=== PATIENT | female | born 1960 | race Caucasian/White ===

== ENCOUNTER 2016-05-16 06:07 | Day surgery (SDC) | payer MEDICARE, OTHER ==
[2016-05-14 15:11] VITALS: BMI 27.4
[~2016-05-16 06:07] MED LIST: DEXAMETHASONE SOD PHOSPHATE 10 MG/ML 1 ML VIAL IV ONE; HEPARIN SODIUM,PORCINE 5,000 UNIT/ML 1 ML VIAL SQ ONE; LACTATED RINGERS 1,000 ML IV SCH; LIDOCAINE 1% 20 ML VIAL (10MG/ML) FOR IV START INTRADERMA PRN; MIDAZOLAM 2 MG/2 ML VIAL IV PRN; ONDANSETRON 4 MG/2 ML VIAL IVP ONE; SCOPOLAMINE 1.5MG/72HR PATCH TRANSDERM ONE; ceFAZolin 2 GM in SODIUM CHLORIDE 0.9% 100 ML IVPB ONE
[2016-05-16] MEDS ORDERED: ACETAMINOPHEN IV (For NPO) 1,000 MG in EMPTY BAG 1 BAG IVPB STA (07:13)
[2016-05-16] MEDS ORDERED: BUPIVACAINE LIPOSOME/PF 1.3% 20 ML, BUPIVACAIN-EPI 0.5%-1:200,000 25 ML, SODIUM CHLORID... MISCELLANE STA ×3 (07:13)
--- NOTE | 2016-05-16 07:16 | P.GSHP ---
History of Present Illness H&P Date: 05/16/16 CHIEF COMPLAINT: Incisional hernia. HISTORY OF PRESENT ILLNESS: The patient is a 55-year-old female who presents with epigastric abdominal pain and incisional hernia found on CT scan of the abdomen. Now she presents for further evaluation and management. PAST MEDICAL HISTORY: Please see list. PAST SURGICAL HISTORY: Please see list. MEDICATIONS: Please see list. ALLERGIES: Please see list. SOCIAL HISTORY: No illicit drug use FAMILY HISTORY: No reports of Crohn disease or ulcerative colitis. REVIEW OF ORGAN SYSTEMS: CONSTITUTIONAL: No reports of fevers or chills. GI: Denies any blood in stools or constipation. PHYSICAL EXAM: VITAL SIGNS: Stable GENERAL: Well-developed pleasant female in no acute distress. HEENT: No scleral icterus. Extraocular movements grossly intact. Moist buccal mucosa. NECK: Supple without lymphadenopathy. CHEST: Unlabored respirations. Equal bilateral excursions. CARDIOVASCULAR: Regular rate and rhythm. Distal 2+ pulses. ABDOMEN: Soft, nondistended. Palpable defect of the epigastrium and tender at previous incision. MUSCULOSKELETAL: No clubbing, cyanosis, or edema. ASSESSMENT: 1. Incisional ventral hernia. 2. Epigastric abdominal pain. PLAN: 1. Recommend proceeding with laparoscopic incisional hernia repair with mesh. 2. Benefits and risks of surgical intervention was discussed including possibility of open technique. 3. DVT prophylaxis. 4. Antibiotic prophylaxis. Past Medical History Past Medical History: Fibromyalgia, GERD/Reflux, Osteoarthritis (OA), Rheumatoid Arthritis (RA) Additional Past Medical History / Comment(s): LUPUS, DEGENERATIVE BONE DISEASE, HX KIDNEY STONES, gout, tinnitis bilaterally,CREST (skin tightening disease) History of Any Multi-Drug Resistant Organisms: None Reported Past Surgical History: Adenoidectomy, Appendectomy, Bariatric Surgery, Cholecystectomy, Hernia Repair, Hysterectomy, Joint Replacement, Tonsillectomy, Tubal Ligation, Uterine Ablation Additional Past Surgical History / Comment(s): 09/18/15 Lap marlyn-en-y with EGD and hiatal hernia repair, lysis of adhesions. Other surgical hx: RT KNEE REPLACEMENT,NEPHROLITHOTOMY x 2,RT CARPEL TUNNEL X 2, RT KNEE ARTHROSCOPY, D&C, rectocele, lap ventral hernia repair, bilateral inguinal hernia repair. EGD Past Anesthesia/Blood Transfusion Reactions: Motion Sickness Additional Past Anesthesia/Blood Transfusion Reaction / Comment(s): no hx blood transfusion Past Psychological History: Anxiety, Depression Additional Psychological History / Comment(s): Pt states depression is well managed. She resides with her spouse. She has a rolling walker that she uses at times. She drives. Smoking Status: Former smoker Past Alcohol Use History: None Reported Additional Past Alcohol Use History / Comment(s): smoked for 6 months at age 16 Past Drug Use History: None Reported - Past Family History Mother Family Medical History: Cancer, Musculoskeletal Disorder, Neurologic Disorder Additional Family Medical History / Comment(s): MS Father Family Medical History: Cancer Additional Family Medical History / Comment(s): HEART PROBLEMS, prostate cancer. Medications and Allergies Home Medications Medication Instructions Recorded Confirmed Type Multivitamins, Thera [Multivitamin] 1 tab PO DAILY 09/07/15 05/14/16 History Acetaminophen Tab [Tylenol Tab] 500 mg PO Q6H PRN 05/14/16 05/14/16 History HYDROcodone/APAP 5-325MG [Hoople 1 - 2 tab PO HS PRN 05/14/16 05/16/16 History 5-325] Allergies Allergy/AdvReac Type Severity Reaction Status Date / Time Penicillins Allergy Severe Rash/Hives, Verified 05/14/16 15:01 fever latex Allergy Itching Verified 05/14/16 15:01 silicone Allergy Itching Verified 05/14/16 15:01 METAL Allergy Rash/Hives Uncoded 05/14/16 15:01 Surgical - Exam Vital Signs Temp Pulse Resp BP Pulse Ox 98 F 58 L 18 116/75 100 05/16/16 06:22 05/16/16 06:22 05/16/16 06:22 05/16/16 06:22 05/16/16 06:22
[2016-05-16] MEDS ORDERED: VECURONIUM 10 MG VIAL IV ONE (07:26)
[2016-05-16] MEDS ORDERED: SUCCINYLCHOLINE CHLORIDE 100 MG/5 ML SYR IV ONE (07:26)
[2016-05-16] MEDS ORDERED: fentaNYL (PF) 50 MCG/ML 2 ML AMP ONE (07:26)
[2016-05-16] MEDS ORDERED: MIDAZOLAM 2 MG/2 ML VIAL ONE (07:26)
[2016-05-16] MEDS ORDERED: NEOSTIGMINE 1 MG/ML 10 ML VIAL ONE (07:26)
[2016-05-16] MEDS ORDERED: PROPOFOL 10 MG/ML 20 ML VIAL IV ONE (07:26)
[2016-05-16] MEDS ORDERED: ePHEDrine 50 MG/ML 1 ML AMP ONE (07:26)
[2016-05-16] MEDS ORDERED: LIDOCAINE 1% INJ 10MG/ML (20 ML MDV) ONE (07:26)
[2016-05-16] MEDS ORDERED: GLYCOPYRROLATE 0.2 MG/ML 2 ML VIAL ONE (07:26)
[2016-05-16] MEDS ORDERED: LACTATED RINGERS 1,000 ML IV ONE ×2 (08:31→11:25)
[2016-05-16] MEDS ORDERED: HYDROcodone/APAP 5-325MG 1 EACH TAB PO PRN (09:03)
[2016-05-16] MEDS ORDERED: ONDANSETRON 4 MG/2 ML VIAL IVP PRN (09:03)
[2016-05-16] MEDS ORDERED: NALOXONE 0.4 MG/ML 1 ML VIAL IV PRN (09:03)
[2016-05-16] MEDS ORDERED: PROMETHAZINE 25 MG TAB PO PRN (09:03)
--- NOTE | 2016-05-16 09:03 | P.PCN ---
Date of Procedure: 05/16/16 Preoperative Diagnosis: Epigastric abdominal pain, history of ventral hernia Postoperative Diagnosis: Extensive adhesions epigastrium, left upper quadrant, history of ventral hernia Procedure(s) Performed: Extensive laparoscopic lysis of adhesions over 1 hour Anesthesia: CALVIN, local Surgeon: Guerda Crowell Estimated Blood Loss (ml): 5 Pathology: none sent Condition: stable Disposition: floor Operative Findings: No recurrent incisional ventral hernia identified. Mesh placement secured from previous repair. Extensive adhesions along the epigastrium at the location of pain resected. Diagnostic laparoscopy from previous gastric bypass demonstrates no Munoz defect. Less than 1 cm jejunojejunostomy mesenteric window without bowel involvement. No evidence of small bowel obstruction or volvulus.
[2016-05-16 09:17] VITALS: RESP 16; TEMP 97.6
[2016-05-16] MEDS: HYDROmorphone 1 MG/ML 1 ML SYRINGE IVP PRN ×4 (09:28→09:48)
[2016-05-16] MEDS ORDERED: KETOROLAC 30 MG/ML 1 ML VIAL IVP ONE (09:28)
[2016-05-16] MEDS ORDERED: HYDROcodone/APAP 5-325MG 1 EACH TAB PO ONE (10:44)
[2016-05-16] MEDS ORDERED: diphenhydrAMINE 50 MG/ML 1 ML VIAL IVP ONE (11:25)
[2016-05-16 12:08] VITALS: BP 129/78; PULSE 63
--- NOTE | 2016-05-18 22:39 | P.OP ---
Date of Procedure: 05/16/16 Description of Procedure: SURGEON: GUERDA CROWELL MD ADVANCED QUALITY ENGINEER: BLANCA CHUA PREOPERATIVE DIAGNOSES: 1. Epigastric abdominal pain. 2. History of ventral hernia. 3. History of gastric bypass. 4. Fibromyalgia. 5. Lyme's disease. 6. Rheumatoid arthritis. 7. Gout. 8. History of kidney stones. 9. CREST connective tissue disease. 10. Lupus. POSTOPERATIVE DIAGNOSES: 1. Epigastric abdominal pain. 2. History of ventral hernia. 3. History of gastric bypass. 4. Fibromyalgia. 5. Lyme's disease. 6. Rheumatoid arthritis. 7. Gout. 8. History of kidney stones. 9. CREST connective tissue disease. 10. Lupus. 11. Severe left upper quadrant omentum to abdominal wall adhesions. 12. Severe right lupper quadrant greater omentum to abdominal adhesions. 13. Interloop adhesions. PROCEDURES PERFORMED: 1. Diagnostic laparoscopy. 2. Laparoscopic lysis of adhesions over 60 minutes of abdominal wall and omentum , epigastrium, and left upper quadrant. ANESTHESIA: General with 85-mL Exparel, sensorcaine, saline and epinephrine mixture. ESTIMATED BLOOD LOSS: 5 mL. SPECIMENS REMOVED: None. COMPLICATIONS: None. OPERATIVE FINDINGS: 1. No recurrent incisional ventral hernia identified. 2. Mesh placement secured from previous repair. 3. Extensive adhesions along the epigastrium at the location of pain, resected. 4. No Munoz defect from gastric bypass. 5. Less than 1 cm jejunojejunostomy mesenteric window without bowel involvement. 6. No evidence of small bowel obstruction or volvulus. INDICATIONS: The patient is a 55-year-old female who presents with acute epigastric abdominal pain including prior history of ventral hernia. Multiple diagnostic studies were also obtained including CT of the abdomen was completed. Given the severity of her symptoms, she elected for surgical intervention. Benefits and risks, including possibility of open technique, injury to the small bowel were described at length. Informed consent was obtained. DESCRIPTION OF PROCEDURE: Patient was brought to the operating room, laid in supine position. After general induction, the abdomen was prepped and draped in standard sterile fashion. Prior to incision, a timeout protocol was confirmed with surgical team regarding patient's name including procedure to be performed. Preoperative medications including antibiotics were given. Additionally, bilateral SCDs including heparin 5000 units was administered. A 5 mm laparoscopic trocar entry performed of the right upper quadrant after anesthetizing the skin with local anesthetic. Diagnostic laparoscopy demonstrated moderate adhesions of the epigastrium as well as the left upper quadrant. No gross small bowel dilatation was encountered. Primarily greater omental adhesions were found of the left upper quadrant. Two additional 5-mm trocars were placed: one placed along the right lower lateral abdominal wall and the other along the lower abdomen. A separate 5-mm port was placed along the left lateral abdominal wall. Initial attention was brought to the epigastrium whereby using a combination of blunt dissection with a Kittner as well as sharp dissection with a Sonicision and scissors were used to take the greater omental adhesions off the abdominal wall. No enterotomy or colotomy had occured as the bowel. Scissors were used where small bowel was identified and energy was avoided near the bowel. Moderate adhesions were confirmed along her previous mesh repair at the umbilicus. No recurrent abdominal wall hernias were found at the epigastrium or the umbilicus. Next attention was brought to investigation of her gastric bypass. The marlyn limb and common channel were investigated proximally and distally and without volvulus, intussusception or internal hernia. The Munoz's defect was fibrotic. The jejujejunostomy mesenteric defect was less than 2-cm in size and without small bowel involvement. The base of the cecum was without inflammation. No enterotomies occurred. No evidence of bowel obstruction or small bowel dilatation was found. Final inspection of the abdomen demonstrated adequate hemostasis including no enterotomies. All instruments and pneumoperitoneum were evacuated from the abdominal cavity. Local anesthetic was infiltrated in all wounds for postop analgesia. Dermabond was applied to the skin after reapproximating the incisions with 4-0 Monocryl as described. At the end of the procedure, needle, sponge, and instrument count was verified correct by surgical coordinator. The patient had tolerated the procedure well and was taken to the postanesthesia care unit in stable condition. Intraoperative abdominal films were described and discussed with her family who were overall pleased with her level of care. Plan - Discharge Summary New Discharge Prescriptions: Hydrocodone/Acetaminophen [Linn 5-325] 1 - 2 each PO Q6HR PRN #60 tab PRN Reason: Pain Discharge Medication List Multivitamins, Thera [Multivitamin] 1 tab PO DAILY 09/07/15 [History] Acetaminophen Tab [Tylenol Tab] 500 mg PO Q6H PRN 05/14/16 [History] HYDROcodone/APAP 5-325MG [Linn 5-325] 1 - 2 tab PO HS PRN 05/14/16 [History] Hydrocodone/Acetaminophen [Linn 5-325] 1 - 2 each PO Q6HR PRN #60 tab 05/16/16 [Rx] Follow up Appointment(s)/Referral(s): Guerda Crowell MD [STAFF PHYSICIAN] - 06/04/16 11:30 am ([place] office) Patient Instructions/Handouts: *Surgery [facility] - (Anesthesia) Discharge Instructions Outpatient Surgery, Exploratory Laparoscopy (DC), Abdominal Binder (GEN) Activity/Diet/Wound Care/Special Instructions: Diet as tolerated. Activity as tolerated. Discharge Disposition: HOME SELF-CARE
== END 2016-05-16 12:14 | disposition home or self-care (01) ==
LOC: OR 06:07
PROVIDERS: ATTEND Surgery Plastic and Reconstructive Surgery
DX: K66.0 Peritoneal adhesions (postprocedural) (postinfection) (principal); Z87.898 Personal history of other specified conditions; Z98.84 Bariatric surgery status; M79.7 Fibromyalgia; A69.20 Lyme disease, unspecified; M06.9 Rheumatoid arthritis, unspecified; M10.9 Gout, unspecified; Z87.442 Personal history of urinary calculi; M34.1 CR(E)ST syndrome; M32.9 Systemic lupus erythematosus, unspecified; K21.9 Gastro-esophageal reflux disease without esophagitis; M19.90 Unspecified osteoarthritis, unspecified site; F41.9 Anxiety disorder, unspecified; F32.9 Major depressive disorder, single episode, unspecified; Z79.891 Long term (current) use of opiate analgesic; Z79.899 Other long term (current) drug therapy; Z91.040 Latex allergy status; Z88.0 Allergy status to penicillin; Z91.048 Other nonmedicinal substance allergy status; Z87.891 Personal history of nicotine dependence
CPT/HCPCS: 49329; J2250; J1200; J1644; J1100; J2710; J2405; J2001; J3010; J1885; J1170; J0330; C9290; J2704

== ENCOUNTER → 2016-05-23 | Outpatient (CLI) | payer MEDICARE, OTHER ==
[2016-05-23 10:56] VITALS: BP 125/71; PULSE 60; RESP 18; TEMP 98.6; BMI 27.8
[2016-05-23 12:05] LABS: CH 29.1; CHCM 32.1; HCT 42.2 % (34.0-46.0); HDW 2.32; HGB 13.7 gm/dL (11.4-16.0); MCH 29.5 pg (25.0-35.0); MCHC 32.5 g/dL (31.0-37.0); MCV 90.8 fL (80.0-100.0); Mean Platelet Volume 8.1; RBC 4.65 m/uL (3.80-5.40); WBC 6.3 k/uL (3.8-10.6)
[2016-05-23 12:08] LABS: Partial Thromboplastin Time 24.3 sec (22.0-30.0); Prothrombin Time 10.4 sec (9.0-12.0)
[2016-05-23 12:16] LABS: ALT 41 U/L (9-52); AST 27 U/L (14-36); Alkaline Phosphatase 72 U/L (38-126); Anion Gap 10 mmol/L; Blood Urea Nitrogen 15 mg/dL (7-17); Calcium 9.5 mg/dL (8.4-10.2); Carbon Dioxide 29 mmol/L (22-30); Chloride 104 mmol/L (98-107); Cholesterol 175 mg/dL (<200); Glucose 93 mg/dL (74-99); HDL Cholesterol 48 mg/dL (40-60); Iron 82 ug/dL (37-170); Magnesium 2.2 mg/dL (1.6-2.3); Non-African American GFR(MDRD) >60 (>60 ml/min/1.73 sqM); Phosphorous 4.3 mg/dL (2.5-4.5); Potassium 4.7 mmol/L (3.5-5.1); Sodium 143 mmol/L (137-145); Total Bilirubin 0.5 mg/dL (0.2-1.3); Total Protein 7.1 g/dL (6.3-8.2); Triglycerides 140 mg/dL (<150)
[2016-05-23 12:27] LABS: % Iron Saturation 23.3 % (20-50); Prealbumin 19 mg/dL (18-36); Total Iron Binding Capacity 352 ug/dL (265-497)
[2016-05-23 13:21] LABS: Vitamin B12 720 pg/mL (239-931)
[2016-05-23 13:52] LABS: Hemoglobin A1C 5.9 % (4.2-6.1)
[2016-05-29 15:37] LABS: Selenium 134 mcg/L (63-160)
--- NOTE | 2016-06-27 06:14 | P.PN ---
Progress Note - Text DATE OF SERVICE: 05/23/2016 CHIEF COMPLAINT: Follow up diagnostic laparoscopy. HISTORY OF PRESENT ILLNESS: Dorothea Whittington is 55-year-old female status post Estrada-en-Y gastric bypass on 09/18/2015. She is now approximately 8 months out. Her highest weight was 252 pounds. Today she comes in weighing 167 pounds. She has lost 85 pounds lifetime. Percent excess weight loss is 82%. Again, her ideal body weight for her 5-foot 5-inch frame is 149 pounds. Body mass index is reduced from 42.0 down to 27.9. She is only 18 pounds overweight. She has recently had diagnostic laparoscopy for epigastric abdominal wall hernia for which adhesions were identified. She still reports intermittent pain along the epigastrium. She is wearing an abdominal binder. Separately, she does complain of moderate discomfort from her pannus, given her amount of weight loss. PHYSICAL EXAM: VITAL SIGNS: 98.6, 18, 125/71; 5 feet 5 inches, 167 pounds. Body mass is 27.9. ABDOMEN: Soft, nontender, nondistended. Pannus extends over pubis by 4 cm. Mild hyperemia noted. Incision is well granulated. No palpable incisional hernias. GENERAL: Well-developed female in no acute distress. MUSCULOSKELETAL: Trace bilateral pitting edema. HEENT: No sclerae icterus. Extraocular movements grossly intact. Moist buccal mucosa. NECK: Supple without lymphadenopathy. CHEST: Lungs with clear respirations, equal bilateral excursions. CARDIOVASCULAR: Regular rate and rhythm. NEURO: No focal or lateralizing signs. Cranial nerves II through XII grossly intact. PSYCH: Appropriate affect. ASSESSMENT 1. Morbid obesity due to excess calories. 2. Body mass index reduced from 42 down to 27.9. 3. Status post Estrada-en-Y gastric bypass. 4. History of intra-abdominal adhesions. 5. Panniculitis. 6. Epigastric abdominal pain. PLAN: 1. I have recommended nystatin powder for history of panniculitis. 2. She has done extremely well, already losing 85 pounds lifetime. 3. No moderate lifting for the next 1 to 2 weeks, as she just had recent surgery. 4. She will wear abdominal binder for comfort. 5. Recommend followup at [place] in approximately 1 to 2 weeks. 6. Will continue to monitor her epigastric abdominal pain.
== END | disposition home or self-care (01) ==
LOC: BARWHC3 09:58
PROVIDERS: ATTEND Surgery Plastic and Reconstructive Surgery
DX: Z48.815 Encounter for surgical aftercare following surgery on the digestive system (principal); E66.01 Morbid (severe) obesity due to excess calories; Z68.27 Body mass index [BMI] 27.0-27.9, adult; E21.1 Secondary hyperparathyroidism, not elsewhere classified; E89.1 Postprocedural hypoinsulinemia; D50.8 Other iron deficiency anemias; E44.0 Moderate protein-calorie malnutrition; E55.9 Vitamin D deficiency, unspecified; Z98.84 Bariatric surgery status; Z71.3 Dietary counseling and surveillance; K74.1 Hepatic sclerosis; N19 Unspecified kidney failure; K50.90 Crohn's disease, unspecified, without complications; K66.0 Peritoneal adhesions (postprocedural) (postinfection); M79.3 Panniculitis, unspecified; R10.13 Epigastric pain
CPT/HCPCS: 84255; 84134; 84425; 80061; 80053; 82607; 82728; 83036; 82525; 82746; 83540; 83550; 83735; 84100; 84443; 84590; 84630; 85027; 85610; 85730; 82306; 83970; 97803; G0463; 99211

== ENCOUNTER → 2016-09-26 | Outpatient (CLI) | payer MEDICARE, OTHER ==
[2016-09-26 09:06] VITALS: BP 114/78; PULSE 59; RESP 16; TEMP 99.1; BMI 28.4
[2016-09-26 10:32] LABS: CH 29.9; CHCM 32.3; HCT 44.7 % (34.0-46.0); HDW 2.21; HGB 14.5 gm/dL (11.4-16.0); MCH 30.2 pg (25.0-35.0); MCHC 32.5 g/dL (31.0-37.0); MCV 93.1 fL (80.0-100.0); Mean Platelet Volume 9.1; RDW 13.3 % (11.5-15.5)
[2016-09-26 10:35] LABS: Partial Thromboplastin Time 23.9 sec (22.0-30.0); Prothrombin Time 10.4 sec (9.0-12.0)
[2016-09-26 10:39] LABS: ALT 42 U/L (9-52); AST 30 U/L (14-36); Alkaline Phosphatase 89 U/L (38-126); Anion Gap 10 mmol/L; Blood Urea Nitrogen 17 mg/dL (7-17); Calcium 9.8 mg/dL (8.4-10.2); Carbon Dioxide 27 mmol/L (22-30); Chloride 104 mmol/L (98-107); Cholesterol 187 mg/dL (<200); Glucose 87 mg/dL (74-99); HDL Cholesterol 69 mg/dL (40-60); Magnesium 2.2 mg/dL (1.6-2.3); Non-African American GFR(MDRD) >60 (>60 ml/min/1.73 sqM); Phosphorous 4.4 mg/dL (2.5-4.5); Potassium 4.9 mmol/L (3.5-5.1); Sodium 141 mmol/L (137-145); Total Bilirubin 0.6 mg/dL (0.2-1.3); Total Protein 7.5 g/dL (6.3-8.2)
[2016-09-26 11:07] LABS: Iron 133 ug/dL (37-170)
[2016-09-26 11:18] LABS: % Iron Saturation 32.6 % (20-50); Prealbumin 23 mg/dL (18-36); Total Iron Binding Capacity 408 ug/dL (265-497)
[2016-09-26 12:07] LABS: Hemoglobin A1C 5.7 % (4.2-6.1)
[2016-09-26 12:14] LABS: Vitamin B12 751 pg/mL (239-931)
[2016-10-02 11:53] LABS: Selenium 135 mcg/L (63-160)
== END | disposition home or self-care (01) ==
LOC: BARWHC3 08-29 10:04
PROVIDERS: ATTEND Surgery Plastic and Reconstructive Surgery
DX: E66.01 Morbid (severe) obesity due to excess calories (principal); Z71.3 Dietary counseling and surveillance; Z88.0 Allergy status to penicillin; Z91.040 Latex allergy status; Z91.048 Other nonmedicinal substance allergy status; Z68.28 Body mass index [BMI] 28.0-28.9, adult
CPT/HCPCS: 84255; 84134; 84425; 80061; 80053; 82607; 82728; 83036; 82525; 82746; 83540; 83550; 83735; 84100; 84443; 84590; 84630; 85027; 85610; 85730; 82306; 83970; 97803; G0463; 99211

== ENCOUNTER 2019-12-08 08:18 | Day surgery (SDC) | payer MEDICARE, OTHER ==
[2019-12-02 16:21] VITALS: BMI 27.3
[2019-12-08 08:56] VITALS: TEMP 98.2
[2019-12-08] MEDS: LACTATED RINGERS 1,000 ML IV SCH ×2 (08:56→09:02)
[2019-12-08] MEDS ORDERED: LIDOCAINE 1% INJ 10MG/ML (20 ML MDV) ONE (09:03)
[2019-12-08] MEDS ORDERED: PROPOFOL 10 MG/ML 20 ML VIAL IV ONE (09:03)
--- NOTE | 2019-12-08 09:23 | P.GSHP ---
History of Present Illness H&P Date: 12/08/19 CHIEF COMPLAINT: Dysphagia HISTORY OF PRESENT ILLNESS: The patient is a 59-year-old female who presents reports dysphagia. Upper endoscopy was offered for further evaluation and management. PAST MEDICAL HISTORY: Please see list. PAST SURGICAL HISTORY: Please see list. MEDICATIONS: Please see list. ALLERGIES: Please see list. SOCIAL HISTORY: No illicit drug use FAMILY HISTORY: No reports of Crohn disease or ulcerative colitis. REVIEW OF ORGAN SYSTEMS: CONSTITUTIONAL: No reports of fevers or chills. GI: Denies any blood in stools or constipation. PHYSICAL EXAM: VITAL SIGNS: Stable GENERAL: Well-developed and pleasant in no acute distress. HEENT: No scleral icterus. Extraocular movements grossly intact. Moist buccal mucosa. NECK: Supple without lymphadenopathy. CHEST: Unlabored respirations. Equal bilateral excursions. CARDIOVASCULAR: Regular rate and rhythm. Distal 2+ pulses. ABDOMEN: Soft, nondistended. MUSCULOSKELETAL: No clubbing, cyanosis, or edema. ASSESSMENT: 1. Dysphagia PLAN: 1. Recommend proceeding with an upper endoscopy with dilator Past Medical History Past Medical History: Coronary Artery Disease (CAD), Fibromyalgia, GERD/Reflux, Hearing Disorder / Deafness, Osteoarthritis (OA), Rheumatoid Arthritis (RA) Additional Past Medical History / Comment(s): LUPUS, Lymes, DDD, Hx kidney stones, hx gout, tinnitis bilaterally, CREST (skin tightening disease), hx fibroid uterus. Episode of pancreatitis 12/2018, c/o episodes of abd pain since then. History of Any Multi-Drug Resistant Organisms: None Reported Past Surgical History: Adenoidectomy, Appendectomy, Bariatric Surgery, Cholecystectomy, Heart Catheterization, Hernia Repair, Hysterectomy, Joint Replacement, Tonsillectomy, Tubal Ligation, Uterine Ablation Additional Past Surgical History / Comment(s): 09/18/15 Lap marlyn-en-y with EGD and hiatal hernia repair, lysis of adhesions. Other surgical hx: Total Rt Knee, NEPHROLITHOTOMY x 2, RT CTR X 2, Rt Knee Arthroscopy, D&C, rectocele, lap ventral hernia repair, bilateral inguinal hernia repair. EGD Past Anesthesia/Blood Transfusion Reactions: No Reported Reaction Additional Past Anesthesia/Blood Transfusion Reaction / Comment(s): no hx blood transfusion Smoking Status: Former smoker - Past Family History Mother Family Medical History: Cancer, Musculoskeletal Disorder, Neurologic Disorder Additional Family Medical History / Comment(s): MS Father Family Medical History: Cancer Additional Family Medical History / Comment(s): HEART PROBLEMS, prostate cancer. Medications and Allergies Home Medications Medication Instructions Recorded Confirmed Type Acetaminophen Tab [Tylenol Tab] 500 mg PO Q6H PRN 05/14/16 12/08/19 History Isosorbide Mononitrate ER [Imdur] 30 mg PO DAILY 12/02/19 12/08/19 History Allergies Allergy/AdvReac Type Severity Reaction Status Date / Time Penicillins Allergy Severe Rash/Hives, Verified 12/08/19 08:57 fever latex Allergy Itching Verified 12/08/19 08:57 silicone Allergy Itching Verified 12/08/19 08:57 METAL Allergy Rash/Hives Uncoded 12/08/19 08:57 Surgical - Exam Vital Signs Temp Pulse Resp BP Pulse Ox 98.2 F 78 18 113/76 98 12/08/19 08:54 12/08/19 08:54 12/08/19 08:54 12/08/19 08:54 12/08/19 08:54
[2019-12-08 09:28] VITALS: RESP 16
--- NOTE | 2019-12-08 09:35 | P.PCN ---
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 SURGEON: Guerda Crowell MD ANESTHESIA: MAC. INDICATIONS: The patient is a 59-year-old female who presents with a history of dysphagia and epigastric abdominal pain. Benefits and risks of the procedure were described. Informed consent was obtained. DESCRIPTION: The patient was brought into the endoscopy suite and laid in the left lateral decubitus position. After a timeout was confirmed, the procedure was initiated. An Olympus gastroscope was passed along the posterior oropharynx down to the distal esophagus where the squamocolumnar junction was unremarkable. The gastric pouch was entered. A gastrojejunal stricture of 15 mm was found as the adult gastroscope was 9.5 mm in size. A [employer] balloon dilator was placed through the scope. Final insufflation from 15 mm up to 20 mm was performed with a total of 2 minutes. The scope was advanced up to 60 cm from the incisors into the Estrada limb. The mucosa of the gastrojejunal anastomosis was intact. No chronic gastrojejunal marginal ulcer was encountered. No full-thickness injury was encountered. The GI tract was desufflated. The patient tolerated the procedure well. FINDINGS: Squamocolumnar junction unremarkable at 35 cm. Stricture of approximately 15 mm encountered. No chronic gastrojejunal ulceration encountered. Successful balloon dilatation to 20 mm. Diaphragmatic hiatus at 40 cm. Gastric pouch 5 cm. LA grade B erosive esophagitis RECOMMENDATIONS: Upper endoscopy as needed May benefit from hiatal hernia repair Plan - Discharge Summary Discharge Rx Participant: No New Discharge Prescriptions: Continue Acetaminophen Tab [Tylenol] 500 mg PO Q6H PRN PRN Reason: Headache Isosorbide Mononitrate ER [Imdur] 30 mg PO DAILY Discharge Medication List Acetaminophen Tab [Tylenol] 500 mg PO Q6H PRN 05/14/16 [History] Isosorbide Mononitrate ER [Imdur] 30 mg PO DAILY 12/02/19 [History] Follow up Appointment(s)/Referral(s): Guerda Crowell MD [STAFF PHYSICIAN] [facility] [place] [facility] - 12/15/19 Patient Instructions/Handouts: *Sur[facility] - (Anesthesia) Endoscopy Discharge Instructions, Upper Endoscopy (DC), Esophageal Dilation (DC) Activity/Diet/Wound Care/Special Instructions: Diet as tolerated Discharge Disposition: HOME SELF-CARE
[2019-12-08 09:48] VITALS: BP 120/71; PULSE 64
== END 2019-12-08 10:02 | disposition home or self-care (01) ==
LOC: ORWHC2ENDO 08:18
PROVIDERS: ATTEND Surgery Plastic and Reconstructive Surgery
DX: K95.89 Other complications of other bariatric procedure (principal); R13.10 Dysphagia, unspecified; K44.9 Diaphragmatic hernia without obstruction or gangrene; K22.10 Ulcer of esophagus without bleeding; K21.9 Gastro-esophageal reflux disease without esophagitis; I25.10 Atherosclerotic heart disease of native coronary artery without angina pectoris; M79.7 Fibromyalgia; H91.90 Unspecified hearing loss, unspecified ear; M19.90 Unspecified osteoarthritis, unspecified site; M06.9 Rheumatoid arthritis, unspecified; M32.9 Systemic lupus erythematosus, unspecified; Z86.19 Personal history of other infectious and parasitic diseases; Z87.442 Personal history of urinary calculi; M10.9 Gout, unspecified; H93.19 Tinnitus, unspecified ear; M34.1 CR(E)ST syndrome; Z87.42 Personal history of other diseases of the female genital tract; Z87.19 Personal history of other diseases of the digestive system; Z90.49 Acquired absence of other specified parts of digestive tract; Z90.710 Acquired absence of both cervix and uterus; Z98.51 Tubal ligation status; Z96.651 Presence of right artificial knee joint; Z98.890 Other specified postprocedural states; Z87.891 Personal history of nicotine dependence; Z80.9 Family history of malignant neoplasm, unspecified; Z80.42 Family history of malignant neoplasm of prostate; Z82.49 Family history of ischemic heart disease and other diseases of the circulatory system; Z82.69 Family history of other diseases of the musculoskeletal system and connective tissue; Z79.899 Other long term (current) drug therapy; Z91.040 Latex allergy status; Z88.0 Allergy status to penicillin; Z91.048 Other nonmedicinal substance allergy status
CPT/HCPCS: 43245; J2001; J2704; C1726 ×2; 43249

== ENCOUNTER → 2020-07-04 | Outpatient (CLI) | payer MEDICARE, OTHER | END | disposition home or self-care (01) | LOC: LABWHC1 10:37 | PROVIDERS: ATTEND Surgery Plastic and Reconstructive Surgery | DX: I11.0 Hypertensive heart disease with heart failure (principal); I50.9 Heart failure, unspecified | CPT/HCPCS: 93005 ==

== ENCOUNTER → 2020-07-14 | Outpatient (CLI) | payer MEDICARE, OTHER ==
[2020-07-14 23:01] LABS: African American GFR (CKD) 109.9 (60.0-200.0); Anion Gap 13.2 mmol/L (4.00-12.00); BUN/Creat Ratio 31.43 Ratio (12.00-20.00); Calcium 8.8 mg/dL (8.7-10.3); Carbon Dioxide 18.8 mmol/L (21.6-31.8); Non-African American GFR(CKD) 94.8 (60.0-200.0); Potassium 3.8 mmol/L (3.5-5.5)
== END | disposition home or self-care (01) ==
LOC: LABWHC1 10:56
PROVIDERS: ATTEND Internal Medicine Cardiovascular Disease
DX: R94.31 Abnormal electrocardiogram [ECG] [EKG] (principal)
CPT/HCPCS: 36415; 80048; 84443

== ENCOUNTER → 2020-07-14 | Outpatient (CLI) | payer MEDICARE, OTHER ==
--- NOTE | 2020-07-14 09:44 | FL ---
EXAMINATION TYPE: FL barium swallow DATE OF EXAM: 07/14/2020 COMPARISON: None HISTORY: Diaphragmatic hernia without obstruction, history of Esrtada-en-Y TECHNIQUE: Single contrast technique was utilized to evaluate the esophagus. FINDINGS: Fluoroscopy time: 41 seconds Images: 55 Esophagus is somewhat prominent to the gastroesophageal junction. Gastroesophageal junction opens wid vipin without stenosis. Mild secondary contractions evident during the exam. Tertiary contractions are not evident. Reflux is not identified. Hiatal hernia is not clearly identified. Contrast passes throu gh the Estrada-en-Y with prompt filling of the proximal small bowel. There is complete stripping of the esophageal bolus in the horizontal drinking position. IMPRESSION: 1. There may be some mild esophageal prominence on overhead radiographs with a more normal-appearing esophagus on fluoroscopy. No hiatal hernia or stenosis is evident.
== END | disposition home or self-care (01) ==
LOC: RADUSWWP 08:06
PROVIDERS: ATTEND Surgery Plastic and Reconstructive Surgery
DX: K44.9 Diaphragmatic hernia without obstruction or gangrene (principal)
CPT/HCPCS: 74220

== ENCOUNTER 2020-09-22 11:05 | Day surgery (SDC) | payer MEDICARE, OTHER ==
[2020-09-20 15:03] VITALS: BMI 25.9
--- NOTE | 2020-09-22 08:37 | P.GSHP ---
History of Present Illness H&P Date: 09/22/20 CHIEF COMPLAINT: Gastroesophageal reflux disease and peritoneal adhesions. HISTORY OF PRESENT ILLNESS: The patient is a 59-year-old female who presents with prior hiatal hernia, moderate gastroesophageal reflux disease and peritoneal adhesions. She has completed an esophageal manometry including upper endoscopy workup. Now she presents for surgical intervention. PAST MEDICAL HISTORY: Please see list. PAST SURGICAL HISTORY: Please see list. MEDICATIONS: Please see list. ALLERGIES: Please see list. SOCIAL HISTORY: Please see list. FAMILY HISTORY: Please see list. REVIEW OF ORGAN SYSTEMS: CONSTITUTIONAL: No reports of fevers or chills. GI: Denies any blood in stools or constipation. PHYSICAL EXAM: VITAL SIGNS: Stable GENERAL: Well-developed pleasant and in no acute distress. HEENT: No scleral icterus. Extraocular movements grossly intact. Moist buccal mucosa. NECK: Supple without lymphadenopathy. CHEST: Unlabored respirations. Equal bilateral excursions. CARDIOVASCULAR: Regular rate and rhythm. Distal 2+ pulses. ABDOMEN: Soft, nondistended. No peritoneal signs. MUSCULOSKELETAL: No clubbing, cyanosis, or edema. SKIN: Well-perfused. Good skin turgor. MANOMETRY: Shows no evidence of achalasia or scleroderma. ASSESSMENT: 1. Gastroesophageal reflux disease. 2. Peritoneal adhesions 3. History of hiatal hernia PLAN: 1. Recommend proceeding with a robotic paraesophageal hiatal hernia with possible mesh. 2. Benefits and risks of surgical intervention was discussed including possibility of open technique. 3. Inpatient hospitalization recommended of 2 nights 4. DVT prophylaxis. 5. Antibiotic prophylaxis. 6. She has also completed a very low caloric high-protein diet to address underlying hepatomegaly. Past Medical History Past Medical History: Coronary Artery Disease (CAD), Fibromyalgia, GERD/Reflux, Hearing Disorder / Deafness, Osteoarthritis (OA), Rheumatoid Arthritis (RA) Additional Past Medical History / Comment(s): hital hernia, LUPUS, Lymes, DDD, Hx kidney stones, hx gout, tinnitis bilaterally, CREST (skin tightening disease), hx fibroid uterus. Episode of pancreatitis 12/2018, c/o episodes of abd pain since then. History of Any Multi-Drug Resistant Organisms: None Reported Past Surgical History: Adenoidectomy, Appendectomy, Bariatric Surgery, Cholecystectomy, Heart Catheterization, Hernia Repair, Hysterectomy, Joint Replacement, Tonsillectomy, Tubal Ligation, Uterine Ablation Additional Past Surgical History / Comment(s): 09/18/15 Lap marlyn-en-y with EGD and hiatal hernia repair, lysis of adhesions. Other surgical hx: Total Rt Knee, NEPHROLITHOTOMY x 2, RT CTR X 2, Rt Knee Arthroscopy, D&C, rectocele, lap ventral hernia repair, bilateral inguinal hernia repair. EGD Past Anesthesia/Blood Transfusion Reactions: No Reported Reaction Additional Past Anesthesia/Blood Transfusion Reaction / Comment(s): no hx blood transfusion Smoking Status: Former smoker - Past Family History Mother Family Medical History: Cancer, Musculoskeletal Disorder, Neurologic Disorder Additional Family Medical History / Comment(s): MS Father Family Medical History: Cancer, Diabetes Mellitus Additional Family Medical History / Comment(s): HEART PROBLEMS, prostate cancer. Medications and Allergies Home Medications Medication Instructions Recorded Confirmed Type Acetaminophen Tab [Tylenol] 500 mg PO Q6H PRN 05/14/16 09/20/20 History Isosorbide Mononitrate ER [Imdur] 30 mg PO QAM 12/02/19 09/20/20 History Diclofenac Sodium Gel [Voltaren 2 gm TOPICAL BID PRN 09/20/20 09/20/20 History Gel] Ibuprofen [Motrin] 800 mg PO Q8H PRN 09/20/20 09/20/20 History Nitroglycerin Sl Tabs [Nitrostat] 0.4 mg SUBLINGUAL Q5M PRN 09/20/20 09/20/20 History Allergies Allergy/AdvReac Type Severity Reaction Status Date / Time Penicillins Allergy Severe Rash/Hives, Verified 09/20/20 14:50 fever latex Allergy Itching Verified 09/20/20 14:50 silicone Allergy Itching Verified 09/20/20 14:50 METAL Allergy Rash/Hives Uncoded 09/20/20 14:50 silicone Allergy Itching Uncoded 09/20/20 14:50
[~2020-09-22 11:05] MED LIST changes: +ACETAMINOPHEN TAB 500 MG TAB PO PRN; +CHLORHEXIDINE GLUCONATE 15 ML CUP MUCOUS MEM PRN; -DEXAMETHASONE SOD PHOSPHATE 10 MG/ML 1 ML VIAL IV ONE; +DEXAMETHASONE SOD PHOSPHATE 4 MG/ML 1 ML VIAL IV ONE; -HEPARIN SODIUM,PORCINE 5,000 UNIT/ML 1 ML VIAL SQ ONE; +HEPARIN SODIUM,PORCINE/PF 5,000 UNIT/0.5 ML SYRINGE SQ PRN; +HYDROmorphone 0.5 MG/0.5 ML SYRINGE IVP PRN; +LIDOCAINE 1% (10MG/ML) FOR IV START INTRADERMA PRN; -LIDOCAINE 1% 20 ML VIAL (10MG/ML) FOR IV START INTRADERMA PRN; -MIDAZOLAM 2 MG/2 ML VIAL IV PRN; +PANTOPRAZOLE 40 MG/10 ML VIAL IVP PRN; -ceFAZolin 2 GM in SODIUM CHLORIDE 0.9% 100 ML IVPB ONE
[2020-09-22 11:50] LABS: Basophils % (A) 1 %; Eosinophils # (A) 0.1 k/uL (0-0.7); Eosinophils % (A) 2 %; HCT 38.1 % (34.0-46.0); HGB 12.9 gm/dL (11.4-16.0); Lymphocytes # (A) 1.7 k/uL (1.0-4.8); Lymphocytes % (A) 31 %; MCH 28.7 pg (25.0-35.0); MCHC 33.8 g/dL (31.0-37.0); MCV 84.7 fL (80.0-100.0); Mean Platelet Volume 9.7; Monocytes # (A) 0.4 k/uL (0-1.0); Monocytes % (A) 7 %; Neutrophils # (A) 3.2 k/uL (1.3-7.7); Neutrophils % (A) 57 %; Platelet Count 221 k/uL (150-450); RDW 12.8 % (11.5-15.5); WBC 5.6 k/uL (3.8-10.6)
[2020-09-22 12:13] LABS: ALT 17 U/L (4-34); AST 27 U/L (14-36); African American GFR (CKD) >90 (>60 ml/min/1.73 sqM); Albumin 4.4 g/dL (3.5-5.0); Alkaline Phosphatase 82 U/L (38-126); Anion Gap 10 mmol/L; Blood Urea Nitrogen 24 mg/dL (7-17); Calcium 9.5 mg/dL (8.4-10.2); Carbon Dioxide 25 mmol/L (22-30); Chloride 106 mmol/L (98-107); Glucose 100 mg/dL (74-99); Non-African American GFR(CKD) >90 (>60 ml/min/1.73 sqM); Sodium 141 mmol/L (137-145); Total Bilirubin 0.3 mg/dL (0.2-1.3); Total Protein 6.9 g/dL (6.3-8.2)
[2020-09-22] MEDS ORDERED: fentaNYL (PF) 50 MCG/ML 2 ML AMP IVP ONE (12:22)
[2020-09-22] MEDS ORDERED: MIDAZOLAM 2 MG/2 ML VIAL IVP ONE (12:22)
[2020-09-22 12:37] VITALS: RESP 16
[2020-09-22] MEDS ORDERED: HEPARIN SODIUM,PORCINE 5,000 UNIT/ML 1 ML VIAL SQ ONE (12:39)
[2020-09-22] MEDS ORDERED: ROCURONIUM 10 MG/ML (5 ML VIAL) IV ONE (13:53)
[2020-09-22] MEDS ORDERED: GLYCOPYRROLATE 0.2 MG/ML 2 ML VIAL ONE (13:53)
[2020-09-22] MEDS ORDERED: HYDROmorphone (PF) 1 MG/ML ONE (13:53)
[2020-09-22] MEDS ORDERED: PROPOFOL 10 MG/ML 20 ML VIAL IV ONE (13:53)
[2020-09-22] MEDS ORDERED: ROPIVACAINE 5 MG/ML 30 ML VIAL ONE (13:53)
[2020-09-22] MEDS ORDERED: NEOSTIGMINE 1 MG/ML 10 ML VIAL ONE (13:53)
[2020-09-22] MEDS ORDERED: LIDOCAINE 1% INJ 10MG/ML (20 ML MDV) ONE (13:53)
[2020-09-22] MEDS ORDERED: SUCCINYLCHOLINE CHLORIDE 100 MG/5 ML SYR IV ONE (13:53)
[2020-09-22] MEDS ORDERED: fentaNYL (PF) 50 MCG/ML 2 ML AMP ONE (13:53)
[2020-09-22] MEDS ORDERED: MIDAZOLAM 2 MG/2 ML VIAL ONE (13:53)
[2020-09-22] MEDS ORDERED: LIDOCAINE 1%-EPI 1:100,000 20 ML VIAL SQ ONE (14:20)
[2020-09-22] MEDS ORDERED: LACTATED RINGERS 1,000 ML IV ONE ×2 (14:33→16:19)
[2020-09-22] MEDS ORDERED: HYOSCYAMINE ORAL DROPS 1.875 MG/15 ML BOTTLE PO PRN (16:14)
[2020-09-22] MEDS ORDERED: NALOXONE 0.4 MG/ML 1 ML VIAL IV PRN (16:14)
[2020-09-22] MEDS ORDERED: diphenhydrAMINE 50 MG/ML 1 ML VIAL IVP PRN (16:14)
[2020-09-22] MEDS ORDERED: HYDROmorphone 1 MG/ML 1 ML SYRINGE IVP PRN (16:14)
[2020-09-22] MEDS ORDERED: 0.9% NACL WITH KCL 20 MEQ/L 1,000 ML IV SCH (16:15)
[2020-09-22] MEDS ORDERED: NITROGLYCERIN SL TABS 0.4 MG TAB SUBLINGUAL PRN (16:19)
--- NOTE | 2020-09-22 16:34 | P.OP ---
Date of Procedure: 09/22/20 Description of Procedure: SURGEON: TOVA JONES MD PREOPERATIVE DIAGNOSES: 1. Gastroesophageal reflux disease 2. History of hiatal hernia 3. History of gastric bypass 4. Ischemic cardiomyopathy 5. Fibromyalgia 6. History of multiple abdominal surgeries 7. Severe epigastric abdominal pain 8. Ineffective esophageal motility POSTOPERATIVE DIAGNOSES: 1. Gastroesophageal reflux disease 2. History of hiatal hernia 3. History of gastric bypass 4. Ischemic cardiomyopathy 5. Fibromyalgia 6. History of multiple abdominal surgeries 7. Severe epigastric abdominal pain 8. Severe epigastric, bilateral upper abdominal peritoneal adhesions 9. 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 NSAID gastropathy as a cause of gastric ulcers 11. Ineffective esophageal motility OPERATION: 1. Robotic-assisted da Brittany Xi laparoscopic extensive lysis of adhesions over 1 hour 2. Intraoperative esophagogastroscopy ANESTHESIA: General with local anesthetic. ESTIMATED BLOOD LOSS: 5 mL Pathology: None COMPLICATIONS: None. FINDINGS: 1. Severe peritoneal adhesions and omentum to abdominal wall involving the epigastrium and bilateral upper abdomen including small bowel and abdominal wall 2. Vigorous peristalsis after extensive lysis of adhesions 3. Jejunojejunostomy and Munoz's defects without herniation completely scarred 4. No small bowel obstruction identified 5. Acute on chronic large marginal gastrojejunal ulcers with history confirming NSAID abuse causing ulceration 6. No hiatal hernias identified INDICATIONS: The patient is a 59-year-old female who presents with epigastric abdominal pain, dysphagia, history of sleeve gastric bypass, gastroesophageal reflux recalcitrant to medical therapy an past history of hiatal hernia. Preoperative workup including manometry demonstrated ineffective esophageal motility. Given the severity of her symptoms, she had elected for surgical intervention. Benefits and risks including bleeding, infection, recurrence, dysphagia, injury to the lung, including persistent abdominal pain, need for further surgery was described at length. Informed consent was obtained. DESCRIPTION: The patient was brought into the operating room and placed in supine position. Preoperatively she had received heparin subcutaneously for DVT prophylaxis. After general induction, the abdomen was prepped and draped in standard sterile fashion. The patient had previously voided prior to coming to the operating room. Ioban draping was placed along the abdomen. A timeout protocol was confirmed with the surgical team, for which the patient's name, procedure to be performed including DVT prophylaxis with bilateral SCDs, and preoperative antibiotics were also confirmed. A robotic da Brittany Xi system was prepped and primed. At 15 cm from the xiphoid to just below the umbilicus, proposed port sites were marked with indelible marker along the left axillary line, left mid-clavicular line with each ports were marked 10 cm from each other. A 5 mm 0 degrees laparoscopic trocar entry was performed along the left upper quadrant. The abdomen was insufflated to 15 mmHg pressure was tolerated well. Diagnostic laparoscopy demonstrated no injury to bowel, viscera. Severe peritoneal adhesions involving the small bowel along the epigastrium including omentum to the abdominal wall and adherence of the liver surface to the abdominal wall was identified. Prior inguinal hernia repairs were intact. Additionally mesh of the epigastrium was identified with moderate adhesions. Next, one 8 mm robotic port was placed along the right upper abdomen. An 8-mm port was were placed along the left lateral abdominal wall. The camera 8-mm port was maintained along the epigastrium. Another 12 mm port was placed along the left upper abdominal wall after exchanging the 5 mm port. Please note that the ports were placed at least 20 cm away from the target anatomy. Care was taken to check that each robotic arm were safely away from collision with the bed or the patient. The patient was repositioned in reverse Trendelenburg position at 21-degrees after lowering the bed. The robot was docked above the right side of the patient. Using a grasper for arm 3, a grasper for arm 1, including vessel sealer for arm 2, the robotic system was docked and primed as described. Instruments were interchanged by the clinical trials assistant. I had sat at the console. Attention was brought to extensive lysis of adhesions involving the epigastrium, bilateral upper abdomen. The vessel sealer was used to carefully dissect bluntly including with minimal energy source omentum from the abdominal wall including small bowel. Vigorous peristalsis was identified after freeing the small bowel of adhesions for more than one hour. The liver surface was attached along the left lobe and right lobe were also freed of adhesions using vessel sealer. The gastric pouch and Estrada limb were followed to the jejunojejunostomy where additional adhesions were lysed. Petersons defect including jejunojejnuostomy defects were completely scarred and closed free of herniation. Careful inspection of the hiatus demonstrated no hiatal hernia. Extensive lysis of adhesions over 1 hour was performed freeing the small bowel from the epigastrium and subxiphoid confirming location of her pain. I went to the head of the bed to perform intraoperative esophagogastroduodenoscopy. An Olympus gastroscope was passed through posterior oropharynx, where the squamocolumnar junction was confirmed at 35 cm from the incisors. I evaluated the gastric pouch where large marginal ulceration along the gastrojejunal anastomosis at least 1 cm in size was found. No hiatus repair was confirmed. The GI tract had been desufflated. No evidence of leaks were found or mucosal defects of the esophagus or stomach. This concluded the endoscopic portion of the case. The robot was undocked from the patient. I re-scrubbed into the case. All instruments and pneumoperitoneum were evacuated from the abdominal cavity. The incisions were cleansed with dilute hydrogen peroxide with saline solution. Incisions were reapproximated using 4-0 Monocryl in an interrupted subcuticular fashion. The 12-mm port site fascial defect was less than 8 mm in size. Exofin was applied to the skin. Local anesthetic was infiltrated in all wounds for postop analgesia. Multiple intra-abdominal films were obtained. At the end of the procedure, needle, sponge, and instrument count was verified correct by the drivability technician. The patient had tolerated the procedure well and was taken to the postanesthesia unit in stable condition. Intraoperative films were reviewed with the patient's family who were pleased with the level of care.
[2020-09-22 16:36] VITALS: BP 150/83; PULSE 74; TEMP 97.9
[2020-09-22] MEDS ORDERED: SODIUM CHLORIDE 0.9% 1,000 ML IV SCH (17:00)
[2020-09-22] MEDS ORDERED: SUCRALFATE 1 GM TAB PO SCH (17:30)
[2020-09-22] MEDS ORDERED: ACETAMINOPHEN IV (For NPO) 1,000 MG in EMPTY BAG 1 BAG IVPB SCH (18:00)
[2020-09-22] MEDS ORDERED: SIMETHICONE 40 MG/0.6 ML DROPS 2,000 MG/30 ML BOTTLE PO SCH (18:00)
[2020-09-22] MEDS ORDERED: ONDANSETRON 4 MG/2 ML VIAL IVP SCH (18:00)
[2020-09-22] MEDS ORDERED: PANTOPRAZOLE 40 MG/10 ML VIAL IVP SCH (21:00)
[2020-09-23] MEDS ORDERED: 0.9% NACL WITH KCL 20 MEQ/L 1,000 ML IV SCH (08:00)
[2020-09-23] MEDS ORDERED: ENOXAPARIN 30 MG/0.3 ML SYRINGE SQ SCH (09:00)
[2020-09-23] MEDS ORDERED: ISOSORBIDE MONONITRATE ER 30 MG TAB.ER.24H PO SCH (09:00)
[2020-09-24] MEDS ORDERED: bisacodyL 5 MG TABLET.DR PO PRN (08:00)
== END 2020-09-22 18:51 | disposition home or self-care (01) ==
LOC: OR 11:05 → 4SSUR 15:47 → OR 18:51
PROVIDERS: ATTEND Surgery Plastic and Reconstructive Surgery
DX: K21.9 Gastro-esophageal reflux disease without esophagitis (principal); I25.5 Ischemic cardiomyopathy; R10.13 Epigastric pain; M79.7 Fibromyalgia; K66.0 Peritoneal adhesions (postprocedural) (postinfection); K31.9 Disease of stomach and duodenum, unspecified; K25.9 Gastric ulcer, unspecified as acute or chronic, without hemorrhage or perforation; K28.3 Acute gastrojejunal ulcer without hemorrhage or perforation; T39.395A Adverse effect of other nonsteroidal anti-inflammatory drugs [NSAID], initial encounter; Z98.84 Bariatric surgery status; Z87.19 Personal history of other diseases of the digestive system; I25.10 Atherosclerotic heart disease of native coronary artery without angina pectoris; Z87.891 Personal history of nicotine dependence; F41.8 Other specified anxiety disorders; M32.9 Systemic lupus erythematosus, unspecified
CPT/HCPCS: 43239; 49329; S2900; 64999; 80053; 85025

== ENCOUNTER 2020-10-25 08:15 | Day surgery (SDC) | payer MEDICARE, OTHER ==
[2020-10-23 10:32] VITALS: BMI 25.4
[~2020-10-25 08:15] MED LIST changes: -ACETAMINOPHEN TAB 500 MG TAB PO PRN; -CHLORHEXIDINE GLUCONATE 15 ML CUP MUCOUS MEM PRN; -DEXAMETHASONE SOD PHOSPHATE 4 MG/ML 1 ML VIAL IV ONE; -HEPARIN SODIUM,PORCINE/PF 5,000 UNIT/0.5 ML SYRINGE SQ PRN; -HYDROmorphone 0.5 MG/0.5 ML SYRINGE IVP PRN; -ONDANSETRON 4 MG/2 ML VIAL IVP ONE; -PANTOPRAZOLE 40 MG/10 ML VIAL IVP PRN; -SCOPOLAMINE 1.5MG/72HR PATCH TRANSDERM ONE
[2020-10-25 09:10] VITALS: RESP 16; TEMP 97.5
[2020-10-25 09:21] LABS: Glucose,Whole Blood 100 mg/dL (75-99)
--- NOTE | 2020-10-25 10:05 | P.GSHP ---
History of Present Illness H&P Date: 10/25/20 CHIEF COMPLAINT: GERD HISTORY OF PRESENT ILLNESS: The patient is a 59-year-old female who presents reports gastroesophageal reflux disease. Upper endoscopy was offered for further evaluation and management. PAST MEDICAL HISTORY: Please see list. PAST SURGICAL HISTORY: Please see list. MEDICATIONS: Please see list. ALLERGIES: Please see list. SOCIAL HISTORY: No illicit drug use FAMILY HISTORY: No reports of Crohn disease or ulcerative colitis. REVIEW OF ORGAN SYSTEMS: CONSTITUTIONAL: No reports of fevers or chills. GI: Denies any blood in stools or constipation. PHYSICAL EXAM: VITAL SIGNS: Stable GENERAL: Well-developed and pleasant in no acute distress. HEENT: No scleral icterus. Extraocular movements grossly intact. Moist buccal mucosa. NECK: Supple without lymphadenopathy. CHEST: Unlabored respirations. Equal bilateral excursions. CARDIOVASCULAR: Regular rate and rhythm. Distal 2+ pulses. ABDOMEN: Soft, nondistended. MUSCULOSKELETAL: No clubbing, cyanosis, or edema. ASSESSMENT: 1. Gastroesophageal reflux disease PLAN: 1. Recommend proceeding with an upper endoscopy Past Medical History Past Medical History: Coronary Artery Disease (CAD), Fibromyalgia, GERD/Reflux, Hearing Disorder / Deafness, Osteoarthritis (OA), Rheumatoid Arthritis (RA) Additional Past Medical History / Comment(s): hital hernia, LUPUS, Lymes, DDD, Hx kidney stones, hx gout, tinnitis bilaterally, CREST (skin tightening disease), hx fibroid uterus. Episode of pancreatitis 12/2018, c/o episodes of abd pain since then. History of Any Multi-Drug Resistant Organisms: None Reported Past Surgical History: Adenoidectomy, Appendectomy, Bariatric Surgery, Cholecystectomy, Heart Catheterization, Hernia Repair, Hysterectomy, Joint Replacement, Tonsillectomy, Tubal Ligation, Uterine Ablation Additional Past Surgical History / Comment(s): 09/18/15 Lap [id number] with EGD and hiatal hernia repair, lysis of adhesions. Other surgical hx: Total Rt Knee, NEPHROLITHOTOMY x 2, RT CTR X 2, Rt Knee Arthroscopy, D&C, rectocele, lap ventral hernia repair, bilateral inguinal hernia repair. EGD Past Anesthesia/Blood Transfusion Reactions: No Reported Reaction Additional Past Anesthesia/Blood Transfusion Reaction / Comment(s): no hx blood transfusion Smoking Status: Former smoker - Past Family History Mother Family Medical History: Cancer, Musculoskeletal Disorder, Neurologic Disorder Additional Family Medical History / Comment(s): MS Father Family Medical History: Cancer, Diabetes Mellitus Additional Family Medical History / Comment(s): HEART PROBLEMS, prostate cancer. Medications and Allergies Home Medications Medication Instructions Recorded Confirmed Type Acetaminophen Tab [Tylenol] 500 mg PO Q6H PRN 05/14/16 10/23/20 History Isosorbide Mononitrate ER [Imdur] 30 mg PO QAM 12/02/19 10/23/20 History Nitroglycerin Sl Tabs [Nitrostat] 0.4 mg SUBLINGUAL Q5M PRN 09/20/20 10/23/20 History Omeprazole [PriLOSEC] 40 mg PO BID #60 cap 09/22/20 10/23/20 Rx Simethicone 40 mg/0.6 ml Drops 40 mg PO PCHS PRN #30 ml 09/22/20 10/23/20 Rx [Mylicon Drops] Allergies Allergy/AdvReac Type Severity Reaction Status Date / Time Penicillins Allergy Severe Rash/Hives, Verified 10/25/20 08:47 fever latex Allergy Itching Verified 10/25/20 08:47 silicone Allergy Itching Verified 10/25/20 08:47 METAL Allergy Rash/Hives Uncoded 10/25/20 08:47 Surgical - Exam Vital Signs Temp Pulse Resp BP Pulse Ox 97.5 F L 56 L 16 111/76 99 10/25/20 09:08 10/25/20 09:08 10/25/20 09:08 10/25/20 09:08 10/25/20 09:08 Results - Labs Abnormal Lab Results - Last 24 Hours (Table) 10/25/20 Range/Units 09:18 POC Glucose (mg/dL) 100 H (75-99) mg/dL
[2020-10-25] MEDS ORDERED: PROPOFOL 10 MG/ML 20 ML VIAL IV ONE (10:11)
[2020-10-25] MEDS ORDERED: LIDOCAINE 1% INJ 10MG/ML (20 ML MDV) ONE (10:11)
[2020-10-25 10:40] VITALS: BP 108/66; PULSE 58
--- NOTE | 2020-10-25 10:51 | P.PCN ---
Date of Procedure: 10/25/20 Description of Procedure: PREOPERATIVE DIAGNOSES: 1. Epigastric abdominal pain. 2. Nausea and vomiting. 3. History of gastric bypass. 4. History of gastric ulcers. POSTOPERATIVE DIAGNOSES: 1. Epigastric abdominal pain. 2. Nausea and vomiting. 3. History of gastric bypass. 4. History of gastric ulcers. PROCEDURE PERFORMED: Esophagogastrojejunoscopy. SURGEON: Guerda Crowell MD ANESTHESIA: MAC. INDICATIONS: The patient is a 59-year-old female with recent history of epigastric abdominal pain including nausea or vomiting and gastric ulcers. She reports persistent symptoms. Upper endoscopy was offered for further evaluation and management. DESCRIPTION: Patient was brought to the endoscopy suite and laid in the left lateral decubitus position. After adequate IV sedation, a bite block was placed. An Olympus gastroscope was passed along the posterior oropharynx down to the distal esophagus where the squamocolumnar junction was found at approximately 38 cm from the incisors. The anastomosis was found at 43 cm, consistent with approximately 5 cm gastric pouch. The scope was advanced 60 cm from the incisors. No evidence of foreign body was found. Residual mild active gastrojejunal ulcerations were encountered. The GI tract was desufflated. The patient tolerated the procedure well. FINDINGS: 1. Improved gastrojejunal ulcer, 3 mm 2. No foreign body found along the anastomosis. PLAN: 1. Continue current therapy omeprazole 40 mg daily for 1 more month Plan - Discharge Summary Discharge Rx Participant: No New Discharge Prescriptions: New Omeprazole [PriLOSEC] 40 mg PO DAILY #30 cap Continue Acetaminophen Tab [Tylenol] 500 mg PO Q6H PRN PRN Reason: Headache Isosorbide Mononitrate ER [Imdur] 30 mg PO QAM Nitroglycerin Sl Tabs [Nitrostat] 0.4 mg SUBLINGUAL Q5M PRN PRN Reason: Chest Pain Simethicone 40 mg/0.6 ml Drops [Mylicon Drops] 40 mg PO PCHS PRN #30 ml PRN Reason: Gas Discontinued Omeprazole [PriLOSEC] 40 mg PO BID #60 cap Discharge Medication List Acetaminophen Tab [Tylenol] 500 mg PO Q6H PRN 05/14/16 [History] Isosorbide Mononitrate ER [Imdur] 30 mg PO QAM 12/02/19 [History] Nitroglycerin Sl Tabs [Nitrostat] 0.4 mg SUBLINGUAL Q5M PRN 09/20/20 [History] Simethicone 40 mg/0.6 ml Drops [Mylicon Drops] 40 mg PO PCHS PRN #30 ml 09/22/20 [Rx] Omeprazole [PriLOSEC] 40 mg PO DAILY #30 cap 10/25/20 [Rx] Follow up Appointment(s)/Referral(s): Guerda Crowell MD [STAFF PHYSICIAN] - 11/09/20 Patient Instructions/Handouts: Peptic Ulcer (DC), Diet for Stomach Ulcers and Gastritis (ED) Discharge Disposition: HOME SELF-CARE
== END 2020-10-25 11:16 | disposition home or self-care (01) ==
LOC: ORWHC2ENDO 08:15
PROVIDERS: ATTEND Surgery Plastic and Reconstructive Surgery
DX: R11.2 Nausea with vomiting, unspecified (principal); Z98.84 Bariatric surgery status; K25.9 Gastric ulcer, unspecified as acute or chronic, without hemorrhage or perforation; I25.10 Atherosclerotic heart disease of native coronary artery without angina pectoris; K21.9 Gastro-esophageal reflux disease without esophagitis; M19.90 Unspecified osteoarthritis, unspecified site; M06.9 Rheumatoid arthritis, unspecified; M79.7 Fibromyalgia; Z87.891 Personal history of nicotine dependence; Z79.899 Other long term (current) drug therapy; Z91.040 Latex allergy status; Z88.0 Allergy status to penicillin; Z91.048 Other nonmedicinal substance allergy status; H91.90 Unspecified hearing loss, unspecified ear
CPT/HCPCS: 43235; J2001; J2704